=== PATIENT | male | born 1980 | race African-American/Black ===

== ENCOUNTER 2022-10-31 14:34 | Emergency (ER) | payer BC ==
[2022-10-31 14:39] VITALS: BP 121/84; PULSE 95; RESP 18; TEMP 97.8; BMI 32.5
[2022-10-31] MEDS ORDERED: CYCLOBENZAPRINE HCL 10 MG TABLET (FP) PO ONE (15:49)
[2022-10-31] MEDS ORDERED: ACETAMINOPHEN 500 MG TABLET (FP) PO ONE (15:49)
[2022-10-31] MEDS ORDERED: predniSONE 20 MG TABLET (UD) PO ONE (15:49)
[2022-10-31] MEDS ORDERED: LIDOCAINE 5% TOPICAL PATCH TP ONE (15:49)
[2022-10-31] MEDS ORDERED: CYCLOBENZAPRINE HCL 10 MG TABLET (FP) ONE (16:10)
[2022-10-31] MEDS ORDERED: predniSONE 20 MG TABLET (UD) ONE (16:10)
[2022-10-31] MEDS ORDERED: LIDOCAINE 5% TOPICAL PATCH ONE (16:10)
[2022-10-31] MEDS ORDERED: LIDOCAINE PATCH REMOVAL MC SCH (22:00)
== END 2022-10-31 16:57 | disposition home or self-care (01) ==
LOC: JERFT 14:34 → JER 14:34 → JERFT 16:57
DX: M46.96 Unspecified inflammatory spondylopathy, lumbar region (principal)
CPT/HCPCS: 99283-25